=== PATIENT | male | born 1990 | race Two or more races ===

== ENCOUNTER 2024-04-18 14:33 | Emergency (ER) | payer MEDICAID, SELFPAY ==
[2024-04-18 15:03] VITALS: BP 131/79; BP 134/86; PULSE 106; PULSE 107; RESP 18; TEMP 37.2; O2SAT 96; O2SAT 97; BMI 21.4
[2024-04-18 15:11] VITALS: RESP 14
[2024-04-18 15:26] LABS: MANUAL DIFF FLAG NO
[2024-04-18 15:29] LABS: Basophils Percent Auto 0.2 % (0-2); Eosinophils Percent Auto 0.1 % (0-4); Hematocrit 40.2 % (42.0-52.0); Hemoglobin 13.6 g/dl (14.0-18.0); Imm Gran Abs Auto 0.07 X10*3/uL (0.00-0.03); Imm Gran Pct Auto 0.6 % (0.0-0.4); Lymphocytes Absolute Auto 1.3 X10*3/uL (1.2-4.9); Lymphocytes Percent Auto 11.5 % (20-40); Mean Corpuscular HGB Conc 33.8 g/dl (31.0-36.0); Mean Corpuscular Hemoglobin 30.6 pg (27.0-33.0); Mean Corpuscular Volume 90.5 fL (80.0-98.0); Mean Platelet Volume 9.8 fL (9.4-12.4); Monocytes Absolute Auto 0.6 X10*3/uL (0.1-1.2); Monocytes Percent Auto 5.3 % (2-11); Neutrophils Absolute Auto 8.9 x10*3/uL (2.0-8.3); Neutrophils Percent Auto 82.3 % (45-73); Platelet Count 269 X10*3/uL (160-400); Red Blood Count 4.44 X10*6/uL (4.60-5.80); Red Cell Distribution Width 12.8 % (11.0-16.0); White Blood Count 10.9 X10*3/uL (4.8-10.8)
--- NOTE | 2024-04-18 15:47 | ED_ITS ---
HPI - Psych General Chief Complaint: Psychiatric Symptoms Stated Complaint: COCAINE USE Time Seen by Provider: 04/18/24 15:42 Source: patient and EMS Mode of arrival: EMS Limitations: no limitations History of Present Illness ED Provider: Ludy Wilson NP HPI Narrative: Patient is a 33-year-old male presents emergency department via EMS for evaluation. He is requesting assistance with detox from cocaine he states he has been using for many years and feels it is impacting his life and feels that he just can not stop. Expresses grease but he would like to be able to see his son but can not if he is using cocaine. He endorses suicidal ideations but does not offer any specific plan or intent to act upon this. Denies additional recreational drug or alcohol usage. Denies homicidal ideations. Denies hallucinations. Related Data Home Medications ?Medication ?Instructions ?Recorded ?Confirmed No Known Home Meds 04/18/24 04/18/24 Allergies Allergy/AdvReac Type Severity Reaction Status Date / Time Penicillins [PENICILLINS] Allergy Unknown SWELLING Verified 04/18/24 15:09 Review of Systems 2 Review of Systems: Yes all other systems are reviewed and are negative [facility] Past Medical History Attestation statement: The following information was validated with the patient. Source: old records reviewed Social History Social History Alcohol intake: current Smoked in Last 30 Days: No Use of substances other than those prescribed or required for medical reasons: Yes Substance Use Type: Crack/Cocaine Substance Use Frequency: Chronic Longstanding Advance Directives: No Advance Directives Information Provided: No Do you have a plan to hurt others: No Plan Physical Exam 2 Vital Signs: Vital Signs: Last Vital Signs Temp 97.5 F 04/19/24 05:00 Pulse 82 04/19/24 05:00 Resp 16 04/19/24 05:00 BP 138/82 04/19/24 05:00 Pulse Ox 97 04/19/24 05:00 O2 Del Method Room Air 04/19/24 05:00 BMI result Body Mass Index 21.4 Appearance: Alert.?Oriented to person, place and time. No acute distress.?Normal affect. Eyes: Pupils equal, round and reactive to light.? ENT: Pharynx normal.?? Neck: Normal inspection.? Neck supple.?? CVS: Heart sounds normal. Normal heart rate and rhythm.? Pulses normal.?? Respiratory: No respiratory distress.? Lung sounds clear to auscultation bilaterally?? Abdomen: Soft and non-tender. Normoactive bowel sounds. Skin: Skin warm and dry.? Normal skin color.? Extremities: No lower extremity edema.? Neuro: Moves all extremities spontaneously. Sensation intact bilaterally. CN II- XII intact. No focal neuro deficits. Ambulates with normal steady gait. Course Reevaluation(s) Reevaluation #1: 11:28 on 04/19/2024. Patient remains in physician observation, he was cleared from the care team for requirement of inpatient level of care, denying suicidal ideations no plan or intent. This was reviewed with the attending physician yesterday evening he was referred to recovery team due to his request for detox from cocaine, endorsing that over the past 2 months he has been abstaining from meth usage but unable to stop using cocaine. Referrals were placed to local recovery facilities, awaiting disposition plan Reevaluation #2: observation care revealed that the patient does NOT meet psychiatric necessity for hospitalization. final disposition discussed with the patient. The patient completed observation care at 111pm. To go to [facility] AHUJA 111pm 04/19/24 Medical Decision Making Medical Decision Making [facility] Narrative: Patient is a 33-year-old male past medical history of substance use disorder with cocaine presenting for evaluation of vague suicidal ideations without a plan or direct intention requesting assistance with detox from. I did advise patient there was no direct detox from cocaine, but he is amenable to labs for medical clearance and referral to care team for safe disposition planning. He offers no physical complaints in his physical examination is benign. Differential Diagnosis Differential Diagnoses: The differential diagnosis associated with the presentation includes (See narrative above and below for further detail) Admission/Observation Consideration of admission/observation: Escalation of care including admission/observation considered Patient is being observed in the Emergency Department for vague suicidal ideations and substance use disorder. Observation time was started at 13:47 on 04/18/2024.?The patient is currently stable and non-toxic appearing. Observation is being initiated in the Emergency Department to allow time to help differentiate if the patient's depression vague suicidal ideation is due to Substance Induced Mood Disorder and Anxiety versus Major Depressive Disorder, Bipolar Le, Bipolar Depression, and Schizophrenia. The patient will receive frequent psychiatric assessments from the provider as well as from nursing staff. The patient will also be monitored for the need of PRN agitation medications such as Haldol, Ativan, and Benadryl. Consult Healthcare Provider Management of the patient was discussed with: Behavioral Health Provider (CARE team) Lab Data MDM Lab Attestation statement: I reviewed the patient's lab results. 04/18/24 15:19 04/18/24 15:19 Labs: Lab Results 04/18/24 04/18/24 Range/Units 15:19 23:12 WBC 10.9 H (4.8-10.8) X10*3/uL RBC 4.44 L (4.60-5.80) X10*6/uL Hgb 13.6 L (14.0-18.0) g/dl Hct 40.2 L (42.0-52.0) % MCV 90.5 (80.0-98.0) fL MCH 30.6 (27.0-33.0) pg MCHC 33.8 (31.0-36.0) g/dl RDW 12.8 (11.0-16.0) % Plt Count 269 (160-400) X10*3/uL MPV 9.8 (9.4-12.4) fL Immature Gran % (Auto) 0.6 H (0.0-0.4) % Neut % (Auto) 82.3 H (45-73) % Lymph % (Auto) 11.5 L (20-40) % [place] % (Auto) 5.3 (2-11) % Eos % (Auto) 0.1 (0-4) % Baso % (Auto) 0.2 (0-2) % Lymph # (Auto) 1.3 (1.2-4.9) X10*3/uL [place] # (Auto) 0.6 (0.1-1.2) X10*3/uL Eos # (Auto) 0.0 (0.0-0.4) X10*3/uL Baso # (Auto) 0.0 (0.0-0.2) X10*3/uL Abs Immat Gran (auto) 0.07 H (0.00-0.03) X10*3/uL Absolute Neuts (auto) 8.9 H (2.0-8.3) x10*3/uL Absolute Nucleated RBC 0.000 (0.0-0.012) X10*3/uL Nucleated RBC % (auto) 0.0 (0.0-0.2) /100WBC Sodium 135 (135-145) mmol/L Potassium 4.0 (3.3-5.1) mmol/L Chloride 102 (96-108) mmol/L Carbon Dioxide 23 (22-29) mmol/L Anion Gap 14 (12-20) BUN 13 (9-16) mg/dL Creatinine 0.66 (0.5-1.4) mg/dL Estim Creat Clear Calc 150.8 Estimated GFR > 60 Random Glucose 102 (60-115) mg/dL Calcium 10.4 H (8.4-10.2) mg/dL Total Bilirubin 0.4 (0.0-1.0) mg/dL AST 27 (5-37) U/L ALT 18 (0-40) U/L Alkaline Phosphatase 73 (39-117) U/L Total Protein 8.0 (6.5-8.0) g/dL Albumin 4.3 (3.5-5.0) g/dL Urine Color Yellow Urine Appearance Clear Urine pH 7.0 (5.0-9.0) Ur Specific Melvin 1.010 (1.005-1.025) Urine Protein Negative (Neg-Trace) mg/dL Urine Glucose (UA) Negative (Negative) mg/dL Urine Ketones Negative (Negative) mg/dL Urine Blood Negative (Negative) Urine Nitrite Negative (Negative) Ur Leukocyte Esterase Trace H (Negative) Urine RBC 0-2 (0-2) /HPF Urine WBC 0-5 (0-5) /HPF Ur Squamous Epith Cells 0-2 (0-2) /HPF Urine Bacteria None Seen (None Seen) Hyaline Casts 0-2 (0-2) /LPF Urine Opiates Screen Not Detected (Not Detect) Ur Buprenorphine Scrn Not Detected (Not Detect) ng/mL Ur Oxycodone Screen Not Detected (Not Detect) ng/mL Urine Methadone Screen Not Detected (Not Detect) ng/mL Urine Fentanyl Screen Not Detected (Not Detect) Ur Barbiturates Screen Not Detected (Not Detect) Ur Phencyclidine Scrn Not Detected (Not Detect) Ur Amphetamines Screen Not Detected (Not Detect) U Benzodiazepines Scrn Not Detected (Not Detect) Urine Cocaine Screen POSITIVE H (Not Detect) U Marijuana (THC) Screen POSITIVE H (Not Detect) Ethyl Alcohol < 10 mg/dL Independent Historian Clinical information obtained from an independent historian. History obtained from or confirmed by: EMS External Record Review External record reviewed: Outpatient record Discharge Plan Discharge Clinical Impression: Suicidal ideation, Cocaine use Patient Disposition: Xfer Other Transfer Details: Yoan Instructions: Cocaine Abuse (ED) Additional Instructions: return for any worsening symptoms or concerns You were seen in our Emergency Department today for treatment of a behavioral health issue. It is important after your visit that you follow up with either your behavioral health provider or a primary care doctor within 7 days.? If you have trouble finding a therapist you can reach out to [address] [phone] The National Suicide and Crisis Lifeline can be reached 7 days a week 24 hours a day.? Call 988 to speak with someone.? Return for any worsening symptoms or concerns such as thoughts of self harm or harm to others. Please call 911 if you feel your mental health is worsening.? Prescriptions: No Action No Known Home Meds Interventions: [place]-Suicide Risk Severity Scale Last Done: 04/18/24 15:11 Print Language: Lao
[2024-04-18 15:51] LABS: Alanine Aminotransferase 18 U/L (0-40); Albumin Level 4.3 g/dL (3.5-5.0); Anion Gap 14 (12-20); Aspartate Amino Transferase 27 U/L (5-37); Bilirubin Total 0.4 mg/dL (0.0-1.0); Blood Urea Nitrogen 13 mg/dL (9-16); Calcium 10.4 mg/dL (8.4-10.2); Carbon Dioxide 23 mmol/L (22-29); Chloride 102 mmol/L (96-108); Creatinine Clr Calc Pharmacy 150.8; Estimated Glomerular Filt Rate > 60; Ethanol < 10 mg/dL; Glucose Random 102 mg/dL (60-115); Sodium 135 mmol/L (135-145)
[2024-04-18 16:28] LABS: Alkaline Phosphatase 73 U/L (39-117)
--- OUTSIDE RECORDS SUMMARY | 2024-04-18 18:16 | XMS_ITS | Encounter Summary ---
Author Organization [facility] Address [address] [place] [address] Care Team Providers Care Corporate Director Name Role Phone Physician, No Pcp Primary Care Provider Unavaila ble Reason for Visit * Reason Comments Flank Pain Left flank pain star zakia yesterday Encounter Details Date Type Department Care Team (Late st Contact Info) Description 04/02/2024 6:02 PM EST - 04/03/2024 1:22 AM EST [facility] Emergency [address] [place] [address] Discharge Disposition: Left Against Medical Advice Social History Tobacco Use Types Packs/Day Years Used Date Smoking Tobacco: Every Day Cigarettes Smokeless Tobacco: Current Tobacco Cessation:Ready to Q uit: Not Asked; Counseling Given: Not Answered Sex and Gender Information Value Date Recorded Sex Assigned at Male 04/03/2024 9:06 PM EST Legal Sex Male 1:03 PM EST Gender Identity Male 04/03/2024 9:06 PM EST Sexual Orientation Not on file documented as of this encounter Last Filed Vital Signs Vital Sign Reading Time Taken Comments Blood Pressure 111/66 04/02/2024 8:47 PM EST Pulse 88 04/02/2024 8:47 PM EST Temperature 37.1 ??C (98.8 ??F) 04/02/2024 8:47 PM ES T Respiratory Rate 18 04/02/2024 8:47 PM EST Oxygen Saturation 97% 04/02/2024 8:47 PM EST Inhaled Oxygen Concentration - - Weight 59 kg (130 lb) 04/02/2024 6:14 PM EST Height 167.6 cm (5' 6 ) 04/02/2024 6:14 PM EST Body Mass Index 20.98 04/02/2024 6:14 PM EST documented in this encounter Discharge Disposition Disposition Code Departure Means Destination Left Against Medical Advice documented in this encounter Progress Notes * Penelope Hernandez RN - 04/02/2024 6:10 PM EST Patient arrives with c/o fever and left lower sided abdominal pain that radiates to his groin, painwith urination, and urgency noted, states cannot hold food or fluids down, body aches, feels SOB when taking deep breath, headache, vomiting intermittently. documented in this encounter Plan of Treatment Not on file documented as of this encounter Procedures Procedure Name Priority Date/Time Associated Diagnosis Comments [id number], RSV, FLU A AND B QUALITATIVE RT-PCR, INTERNAL LAB STAT 04/02/2024 8:47 PM EST URINALYSIS WITH REFLEX MICROSCOPIC AND CULTURE STAT 04/02/2024 6:46 PM EST BUITRAGO URINE CULTURE TUBE STAT 04/02/2024 6:46 PM EST URINALYSIS WITH REFLEX MICROSCOPIC AND CULTURE STAT 04/02/2024 6:46 PM EST CULTURE URINE STAT 04/02/2024 6:46 PM EST CBC WITH AUTO DIFFERENTIAL STAT 04/02/2024 6:43 PM EST CBC AND DIFFERENTIAL STAT 04/02/2024 6:43 PM EST COMPREHENSIVE METABOLIC PANEL STAT 04/02/2024 6:43 PM EST documented in this encounter Results * [id number], RSV, Influenza A and B qualitative RT-PCR (04/02/2024 8:47 PM EST) Influenza A PCR Not Detected Not Detected LAB MICROBIOLOGY METHOD 04/02/2024 10:14 PM EST [facility] Influenza B PCR Not Detected Not Detected LAB MICROBIOLOGY METHOD 04/02/2024 10:14 PM EST [facility] RSV PCR Not Detected Not Detected LAB MICROBIOLOGY METHOD 04/02/2024 10:14 PM EST [facility] SARS COV-2 Not Detected Not Detected LAB MICROBIOLOGY METHOD 04/02/2024 10:14 PM EST [facility] Swab Both anterior nares / Unknown Non-blood Collection / Unknown 04/02/2024 8:47 PM EST 04/02/2024 9:32 PM EST Narrative [facility] - 04/02/2024 10:14 PM EST Disclaimer: ??Testing was performed using the [employer] Gene[employer] Lotus[employer] Xpress SARS-CoV-2 _Flu_RSV PLUS PCR assay. ??The manner in which this information is used to guide patient care is the responsibility of the healthcare provider. ??Results should be correlated with the clinical history, epidemiological data, and other data available to the clinician evaluating the patient. ??Negative results do not preclude infection. ??This test has been authorized by the FDA under an Emergency Use Authorization (EUA). ??This test is only authorized for the duration of time the declaration that circumstances exist justifying the authorization of the emergency use of in vitro diagnostic tests for detection of SARS-CoV-2 virus and/or diagnosis of COVID-19 infection under section 564 (b) (1) of the Act, 21 U.S.C 360bbb-3 (b) (1), unless the authorization is terminated or revoked sooner. ?? Reference Range: Not Detected Fact sheet for Healthcare providers can be found at https://www.fda.gov/media/620881/download. ?? Fact sheet for Healthcare patients can be found at https://www.fda.gov/media/264191/download. Joni Vasquez MD LAB MICROBIOLOGY - GENERAL FABIOLA JONES Final Result [facility] [address] [place] [address], * Culture urine (04/02/2024 6:46 PM EST) [facility] Culture, Urine No growth 04/03/2024 2:08 PM EST [facility] Urine Urine specimen obtained by clean catch procedure / Unknown Non-blood Collection / Unknown 04/02/2024 6:46 PM EST 04/02/2024 7:50 PM EST Danny Arvizu MD LAB MICROBIOLOGY - GENERAL ORDE RABLES Final Result [facility] [address] [place] [address], [place] [phone] * Buitrago urine culture tube (04/02/2024 6:46 PM EST) [facility] Extra Tube Hold for add-ons. 04/02/2024 9:01 PM EST [facility] Comment:Auto resulted. Urine Urine specimen obtained by clean catch procedure / Unknown Non-blood Collection / Unknown 04/02/2024 6:46 PM EST 04/02/2024 7:14 PM EST Danny Arvizu MD LAB URINE ORDERABLES Final Resu lt Performing Organization Address [facility]/ZIP Co de Phone Number [facility] [address] [place] [address], [place] [phone] * (ABNORMAL) Urinalysis with reflex microscopic and culture (04/02/2024 6:46 PM EST) [facility] Specific [place] Urine 1.027 1.003 - 1.030 LAB URINALYSIS - AUTOMATED METHOD 04/02/2024 7:50 PM [facility] pH, Urine 8.0 5.0 - 8.0 pH LAB URINALYSIS - AUTOMATED METHOD 04/02/2024 7:50 PM [facility] Leukocytes, Urine Small(A) Negative LAB URINALYSIS - AUTOMATED METHOD 04/02/2024 7:50 PM [facility] Nitrite, Urine Negative Negative LAB URINALYSIS - AUTOMATED METHOD 04/02/2024 7:50 PM [facility] Protein, Urine 30(A) <=Trace mg/dL LAB URINALYSIS - AUTOMATED METHOD 04/02/2024 7:50 PM [facility] Glucose, Urine Negative Negative mg/dL LAB URINALYSIS - AUTOMATED METHOD 04/02/2024 7:50 PM [facility] Ketones, Urine Trace(A) Negative mg/dL LAB URINALYSIS - AUTOMATED METHOD 04/02/2024 7:50 PM [facility] Urobilinogen , Urine 1.0 0.2 - 1.0 mg/dL LAB URINALYSIS - AUTOMATED METHOD 04/02/2024 7:50 PM [facility] Bilirubin, Urine Negative Negative LAB URINALYSIS - AUTOMATED METHOD 04/02/2024 7:50 PM [facility] Blood, Urine Negative Negative LAB URINALYSIS - AUTOMATED METHOD 04/02/2024 7:50 PM [facility] RBC, Urine 3.3 0 - 4 /HPF LAB URINALYSIS - AUTOMATED METHOD 04/02/2024 7:50 PM [facility] WBC, Urine 13.3(H) 0 - 4 /HPF LAB URINALYSIS - AUTOMATED METHOD 04/02/2024 7:50 PM [facility] Squamous Epithelial, Urine 40 0 - 60 /LPF LAB URINALYSIS - AUTOMATED METHOD 04/02/2024 7:50 PM [facility] Crystals, Urine Light Amorphous Phosphate crystals. /LPF 04/02/2024 7:50 PM [facility] Bacteria, Urine Few(A) Negative /HPF LAB URINALYSIS - AUTOMATED METHOD 04/02/2024 7:50 PM [facility] Hyaline Casts, Urine 0 0 - 3 /LPF LAB URINALYSIS - AUTOMATED METHOD 04/02/2024 7:50 PM EST [facility] Mucus, Urine Moderate None /HPF 04/02/2024 7:50 PM EST [facility] Urine Urine specimen obtained by clean catch procedure / Unknown Non-blood Collection / Unknown 04/02/2024 6:46 PM EST 04/02/2024 7:14 PM EST us Danny Arvizu MD LAB URINE ORDERABLES Final Resu lt [facility] [address] [place] [address], [place] [phone] * (ABNORMAL) CBC auto differential (04/02/2024 6:43 PM EST) WBC 10.3 4.8 - 10.8 K/mcL LAB HEMETOLOGY METHOD 04/02/2024 7:26 PM [facility] RBC 4.50 4.50 - 5.50 M/mcL LAB HEMETOLOGY METHOD 04/02/2024 7:26 PM [facility] Hemoglobin 14.0 13.5 - 17.5 g/dL LAB HEMETOLOGY METHOD 04/02/2024 7:26 PM [facility] Hematocrit 41.7(L) 42.0 - 54.0 % LAB HEMETOLOGY METHOD 04/02/2024 7:26 PM [facility] MCV 92.3 79.0 - 98.0 FL LAB HEMETOLOGY METHOD 04/02/2024 7:26 PM [facility] MCH 31.0 27.0 - 32.0 pcg LAB HEMETOLOGY METHOD 04/02/2024 7:26 PM [facility] MCHC 33.6 32.0 - 37.0 g/dL LAB HEMETOLOGY METHOD 04/02/2024 7:26 PM [facility] RDW 12.2 11.0 - 15.0 % LAB HEMETOLOGY METHOD 04/02/2024 7:26 PM [facility] Platelets 301 130 - 400 K/mcL LAB HEMETOLOGY METHOD 04/02/2024 7:26 PM [facility] MPV 10.7 7.0 - 11.0 FL LAB HEMETOLOGY METHOD 04/02/2024 7:26 PM [facility] NRBC 0.0 <1.0 % LAB HEMETOLOGY METHOD 04/02/2024 7:26 PM [facility] NRBC Absolute 0.00 <0.10 K/mcL LAB HEMETOLOGY METHOD 04/02/2024 7:26 PM [facility] Neutrophils Relative 81.2 % LAB HEMETOLOGY METHOD 04/02/2024 7:26 PM [facility] Lymphocytes Relative 10.5 % LAB HEMETOLOGY METHOD 04/02/2024 7:26 PM [facility] Monocytes Relative 7.7 % LAB HEMETOLOGY METHOD 04/02/2024 7:26 PM [facility] Eosinophils Relative 0.0 % LAB HEMETOLOGY METHOD 04/02/2024 7:26 PM [facility] Basophils Relative 0.2 % LAB HEMETOLOGY METHOD 04/02/2024 7:26 PM [facility] Immature Granulocytes Relative 0.4 % LAB HEMETOLOGY METHOD 04/02/2024 7:26 PM [facility] Neutrophils Absolute 8.39(H) 1.50 - 7.00 K/mcL LAB HEMETOLOGY METHOD 04/02/2024 7:26 PM [facility] Lymphocytes Absolute 1.09 1.00 - 5.00 K/mcL LAB HEMETOLOGY METHOD 04/02/2024 7:26 PM [facility] Monocytes Absolute 0.80 0.20 - 1.00 K/mcL LAB HEMETOLOGY METHOD 04/02/2024 7:26 PM EST [facility] Eosinophils Absolute 0.00 0.00 - 0.50 K/mcL LAB HEMETOLOGY METHOD 04/02/2024 7:26 PM EST [facility] Basophils Absolute 0.02 0.00 - 0.20 K/mcL LAB HEMETOLOGY METHOD 04/02/2024 7:26 PM EST [facility] Immature Granulocytes Absolute 0.04(H) 0.00 - 0.03 K/[facility] LAB HEMETOLOGY METHOD 04/02/2024 7:26 PM EST [facility] Blood Venous blood specimen / Unknown Venipuncture / Unknown 04/02/2024 6:43 PM EST 04/02/2024 7:12 PM EST us Danny Arvizu MD LAB BLOOD ORDERABLES Final Resu lt [facility] [address] [place] [address], [place] [phone] * (ABNORMAL) Comprehensive metabolic panel (04/02/2024 6:43 PM EST) Sodium 129(L) 133 - 145 mmol/L LAB CHEMISTRY METHOD 04/02/2024 8:00 PM [facility] Potassium 4.3 3.5 - 5.5 mmol/L LAB CHEMISTRY METHOD 04/02/2024 8:00 PM [facility] Chloride 98 96 - 110 mmol/L LAB CHEMISTRY METHOD 04/02/2024 8:00 PM [facility] CO2 29 21 - 32 mmol/L LAB CHEMISTRY METHOD 04/02/2024 8:00 PM [facility] Anion Gap 2(L) 3 - 11 LAB CHEMISTRY METHOD 04/02/2024 8:00 PM [facility] Glucose 84 70 - 100 mg/dL LAB CHEMISTRY METHOD 04/02/2024 8:00 PM [facility] BUN 12 5 - 25 mg/dL LAB CHEMISTRY METHOD 04/02/2024 8:00 PM [facility] Creatinine 1.07 0.70 - 1.30 mg/dL LAB CHEMISTRY METHOD 04/02/2024 8:00 PM [facility] eGFR 95 >=60 mL/min/1. 73m2 LAB CHEMISTRY METHOD 04/02/2024 8:00 PM [facility] Comment:Calculation based on the??Chronic Kidney Disease Epidemiology Collaboration (CKD-EPI) equation refit??without adjustment for race. BUN/Creatinine Ratio 11.2 LAB CHEMISTRY METHOD 04/02/2024 8:00 PM [facility] Calcium 9.5 8.5 - 10.5 mg/dL LAB CHEMISTRY METHOD 04/02/2024 8:00 PM [facility] AST (SGOT) 21 10 - 42 unit/L LAB CHEMISTRY METHOD 04/02/2024 8:00 PM [facility] ALT (SGPT) 17 10 - 60 unit/L LAB CHEMISTRY METHOD 04/02/2024 8:00 PM [facility] Alkaline Phosphatase 80 42 - 121 unit/L LAB CHEMISTRY METHOD 04/02/2024 8:00 PM [facility] Total Protein 7.3 6.0 - 8.0 g/dL LAB CHEMISTRY METHOD 04/02/2024 8:00 PM [facility] Albumin 3.8 3.2 - 5.0 g/dL LAB CHEMISTRY METHOD 04/02/2024 8:00 PM [facility] Total Bilirubin 0.4 0.0 - 1.4 mg/dL LAB CHEMISTRY METHOD 04/02/2024 8:00 PM [facility] Blood Venous blood specimen / Unknown Venipuncture / Unknown 04/02/2024 6:43 PM EST 04/02/2024 7:12 PM EST us Danny Arvizu MD LAB BLOOD ORDERABLES Final Resu lt [facility] [address] [place] [address], documented in this encounter Visit Diagnoses Not on filedocumented in this encounter Administered Medications Inactive Administered Medications - up to 3 most recent administrations Medication Order MAR Action Action Date Dose Rate Site acetaminophen (TYLENOL) tablet 1,000 mg 1,000 mg, oral, Once, On Sun04/02/24 at 1820, For 1 dose Given 04/02/2024 6:25 PM EST 1,000 mg documented in this encounter Active and Recently Administered Medications Times are shown in EST. Scheduled Medication Order 04/01/2024 04/02/2024 04/03/2024 acetaminophen (TYLENOL) tablet 1,000 mg (COMPLETED) 1,000 mg, oral, Once, On Sun04/02/24 at 1820, For 1 dose 1825 (Given - Provider: Aury Hernandez RN) documented in this encounter Orders Medications Ordered That Felipe ht Not Have Been Administered Count Last Ordered Date First Ordered Date acetaminophen (TYLENOL) tablet 1,000 mg 1 0 04/02/2024 documented in this encounter Additional Health Concerns Infection Onset Date Last Indicated Resolved Time Respiratory Rule-Out 04/02/2024 04/02/2024 025 10:14 PM EST COVID-19 Rule-Out 04/02/2024 04/02/2024 04/02/2024 10:14 PM EST documented as of this encounter Care Teams Corporate Director Relationship Specialty Start Date End Date Physician, No Pcp PCP - General 04/03/24 documented as of this encounter
--- OUTSIDE RECORDS SUMMARY | 2024-04-18 18:16 | XMS_ITS | Encounter Summary ---
Author Organization [facility] Address [address] [place] [address] Care Team Providers Care Air Conditioning Installer Name Role Phone Physician, No Pcp Primary Care Provider Unavaila ble Reason for Visit * Reason Comments Abdominal Pain SEEN YESTERDAY FOR T HE SAME Encounter Details Date Type Department Care Team (Late st Contact Info) Description 04/03/2024 6:49 PM EST - 04/04/2024 12:05 AM EST Emergency [facility] Emergency [address] [place] [id number] Discharge Disposition: ED Dismiss - Never Arrived Social History Tobacco Use Types Packs/Day Years Used Date Smoking Tobacco: Every Day Cigarettes Smokeless Tobacco: Current Sex and Gender Information Value Date Recorded Sex Assigned at Male 04/03/2024 9:06 PM EST Legal Sex Male 1:03 PM EST Gender Identity Male 04/03/2024 9:06 PM EST Sexual Orientation Not on file documented as of this encounter Last Filed Vital Signs Vital Sign Reading Time Taken Comments Blood Pressure 102/59 04/03/2024 6:56 PM EST Pulse 96 04/03/2024 6:56 PM EST Temperature 36.7 ??C (98.1 ??F) 04/03/2024 6:56 PM ES T Respiratory Rate 16 04/03/2024 6:56 PM EST Oxygen Saturation 96% 04/03/2024 6:56 PM EST Inhaled Oxygen Concentration - - Weight 59 kg (130 lb) 04/03/2024 6:56 PM EST Height 167.6 cm (5' 5.98 ) 04/03/2024 6:56 PM ES T Body Mass Index 20.99 04/03/2024 6:56 PM EST documented in this encounter Discharge Disposition Disposition Code Departure Means Destination Comment s ED Dismiss - Never Arrived Pt called 3x for vital recheck, no response. Waiting room and bathrooms checked. Pt left without being seen. documented in this encounter Progress Notes * Juancarlos Miller DO - 04/03/2024 8:02 PM EST 33-year-old male presents emergency department with lower abdominal pain. The patient's workup willbe started in triage, and the patient will be brought back to see an ED provider soon as possible. I have spoken with the patient and explained that we strive to provide safe and effective care in the emergency department. During their visit they may experience extended wait times. I have discussed that out of concern for their safety, if the patient needs to leave for any reason to please let staff know immediately. * Gardenia Russell RN - 04/03/2024 6:54 PM EST PT continues to have lower quad abd pain, pain with urination and weakness. PT states had labs drawn yesterday but left before being seen. documented in this encounter Plan of Treatment Not on file documented as of this encounter Procedures Procedure Name Priority Date/Time Associated Diagnosis Comments URINALYSIS WITH REFLEX MICROSCOPIC AND CULTURE STAT 04/03/2024 8:12 PM EST BUITRAGO URINE CULTURE TUBE STAT 04/03/2024 8:12 PM EST URINALYSIS WITH REFLEX MICROSCOPIC AND CULTURE STAT 04/03/2024 8:12 PM EST CBC WITH AUTO DIFFERENTIAL STAT 04/03/2024 7:53 PM EST CBC AND DIFFERENTIAL STAT 04/03/2024 7:53 PM EST LIPASE STAT 04/03/2024 7:53 PM EST COMPREHENSIVE METABOLIC PANEL STAT 04/03/2024 7:53 PM EST documented in this encounter Results * Buitrago urine culture tube (04/03/2024 8:12 PM EST) Pathologist [facility] Extra Tube Hold for add-ons. 04/03/2024 10:02 PM [facility] Comment:Auto resulted. Urine Urine specimen obtained by clean catch procedure / Unknown Non-blood Collection / Unknown 04/03/2024 8:12 PM EST 04/03/2024 8:24 PM EST us Juancarlos Miller DO LAB URINE ORDERABLES Final Res ult [facility] [address] [place] [address], [place] [phone] * (ABNORMAL) Urinalysis with reflex microscopic and culture (04/03/2024 8:12 PM EST) [facility] Specific [place] Urine 1.029 1.003 - 1.030 LAB URINALYSIS - AUTOMATED METHOD 04/03/2024 8:41 PM [facility] pH, Urine 6.0 5.0 - 8.0 pH LAB URINALYSIS - AUTOMATED METHOD 04/03/2024 8:41 PM [facility] Leukocytes, Urine Negative Negative LAB URINALYSIS - AUTOMATED METHOD 04/03/2024 8:41 PM [facility] Nitrite, Urine Negative Negative LAB URINALYSIS - AUTOMATED METHOD 04/03/2024 8:41 PM [facility] Protein, Urine 30(A) <=Trace mg/dL LAB URINALYSIS - AUTOMATED METHOD 04/03/2024 8:41 PM [facility] Glucose, Urine Negative Negative mg/dL LAB URINALYSIS - AUTOMATED METHOD 04/03/2024 8:41 PM [facility] Ketones, Urine Trace(A) Negative mg/dL LAB URINALYSIS - AUTOMATED METHOD 04/03/2024 8:41 PM [facility] Urobilinogen, Urine 1.0 0.2 - 1.0 mg/dL LAB URINALYSIS - AUTOMATED METHOD 04/03/2024 8:41 PM [facility] Bilirubin, Urine Negative Negative LAB URINALYSIS - AUTOMATED METHOD 04/03/2024 8:41 PM [facility] Blood, Urine Negative Negative LAB URINALYSIS - AUTOMATED METHOD 04/03/2024 8:41 PM [facility] RBC, Urine 2.4 0 - 4 /HPF LAB URINALYSIS - AUTOMATED METHOD 04/03/2024 8:41 PM [facility] WBC, Urine 1.8 0 - 4 /HPF LAB URINALYSIS - AUTOMATED METHOD 04/03/2024 8:41 PM [facility] Squamous Epithelial, Urine 10 0 - 60 /LPF LAB URINALYSIS - AUTOMATED METHOD 04/03/2024 8:41 PM [facility] Bacteria, Urine Negative Negative /HPF LAB URINALYSIS - AUTOMATED METHOD 04/03/2024 8:41 PM [facility] Hyaline Casts, Urine 0.0 0 - 3 /LPF LAB URINALYSIS - AUTOMATED METHOD 04/03/2024 8:41 PM [facility] Urine Urine specimen obtained by clean catch procedure / Unknown Non-blood Collection / Unknown 04/03/2024 8:12 PM EST 04/03/2024 8:24 PM EST us Juancarlos Miller DO LAB URINE ORDERABLES Final Res ult [facility] [address] [place] [address], [place] [phone] * (ABNORMAL) CBC auto differential (04/03/2024 7:53 PM EST) WBC 12.2(H) 4.8 - 10.8 K/mcL LAB HEMETOLOGY METHOD 04/03/2024 8:09 PM [facility] RBC 4.50 4.50 - 5.50 M/mcL LAB HEMETOLOGY METHOD 04/03/2024 8:09 PM [facility] Hemoglobin 14.1 13.5 - 17.5 g/dL LAB HEMETOLOGY METHOD 04/03/2024 8:09 PM [facility] Hematocrit 41.1(L) 42.0 - 54.0 % LAB HEMETOLOGY METHOD 04/03/2024 8:09 PM [facility] MCV 90.7 79.0 - 98.0 FL LAB HEMETOLOGY METHOD 04/03/2024 8:09 PM [facility] MCH 31.1 27.0 - 32.0 pcg LAB HEMETOLOGY METHOD 04/03/2024 8:09 PM [facility] MCHC 34.3 32.0 - 37.0 g/dL LAB HEMETOLOGY METHOD 04/03/2024 8:09 PM [facility] RDW 12.2 11.0 - 15.0 % LAB HEMETOLOGY METHOD 04/03/2024 8:09 PM [facility] Platelets 241 130 - 400 K/mcL LAB HEMETOLOGY METHOD 04/03/2024 8:09 PM [facility] MPV 9.9 7.0 - 11.0 FL LAB HEMETOLOGY METHOD 04/03/2024 8:09 PM [facility] NRBC 0.0 <1.0 % LAB HEMETOLOGY METHOD 04/03/2024 8:09 PM [facility] NRBC Absolute 0.00 <0.10 K/mcL LAB HEMETOLOGY METHOD 04/03/2024 8:09 PM [facility] Neutrophils Relative 68.2 % LAB HEMETOLOGY METHOD 04/03/2024 8:09 PM [facility] Lymphocytes Relative 18.7 % LAB HEMETOLOGY METHOD 04/03/2024 8:09 PM [facility] Monocytes Relative 12.5 % LAB HEMETOLOGY METHOD 04/03/2024 8:09 PM [facility] Eosinophils Relative 0.1 % LAB HEMETOLOGY METHOD 04/03/2024 8:09 PM [facility] Basophils Relative 0.2 % LAB HEMETOLOGY METHOD 04/03/2024 8:09 PM [facility] Immature Granulocytes Relative 0.3 % LAB HEMETOLOGY METHOD 04/03/2024 8:09 PM [facility] Neutrophils Absolute 8.32(H) 1.50 - 7.00 K/mcL LAB HEMETOLOGY METHOD 04/03/2024 8:09 PM [facility] Lymphocytes Absolute 2.29 1.00 - 5.00 K/mcL LAB HEMETOLOGY METHOD 04/03/2024 8:09 PM [facility] Monocytes Absolute 1.53(H) 0.20 - 1.00 K/mcL LAB HEMETOLOGY METHOD 04/03/2024 8:09 PM [facility] Eosinophils Absolute 0.01 0.00 - 0.50 K/mcL LAB HEMETOLOGY METHOD 04/03/2024 8:09 PM [facility] Basophils Absolute 0.03 0.00 - 0.20 K/mcL LAB HEMETOLOGY METHOD 04/03/2024 8:09 PM [facility] Immature Granulocytes Absolute 0.04(H) 0.00 - 0.03 K/mcL LAB HEMETOLOGY METHOD 04/03/2024 8:09 PM [facility] Blood Venous blood specimen / Unknown Venipuncture / Unknown 04/03/2024 7:53 PM EST 04/03/2024 8:02 PM EST us Juancarlos Miller DO LAB BLOOD ORDERABLES Final Res ult Performing Organization Address [facility]/ZIP Co de Phone Number [facility] [address] [place] [address], [place] [phone] * Lipase (04/03/2024 7:53 PM EST) Lipase 21 13 - 75 unit/L LAB CHEMISTRY METHOD 04/03/2024 8:35 PM EST [facility] Blood Venous blood specimen / Unknown Venipuncture / Unknown 04/03/2024 7:53 PM EST 04/03/2024 8:02 PM EST Juancarlos Miller DO LAB BLOOD ORDERABLES Final Res ult Performing Organization Address [facility]/ZIP Co de Phone Number [facility] [address] [place] [address], [place] [phone] * (ABNORMAL) Comprehensive metabolic panel (04/03/2024 7:53 PM EST) [facility] Sodium 132(L) 133 - 145 mmol/L LAB CHEMISTRY METHOD 04/03/2024 8:35 PM [facility] Potassium 4.1 3.5 - 5.5 mmol/L LAB CHEMISTRY METHOD 04/03/2024 8:35 PM [facility] Chloride 100 96 - 110 mmol/L LAB CHEMISTRY METHOD 04/03/2024 8:35 PM [facility] CO2 25 21 - 32 mmol/L LAB CHEMISTRY METHOD 04/03/2024 8:35 PM [facility] Anion Gap 7 3 - 11 LAB CHEMISTRY METHOD 04/03/2024 8:35 PM [facility] Glucose 123(H) 70 - 100 mg/dL LAB CHEMISTRY METHOD 04/03/2024 8:35 PM [facility] BUN 16 5 - 25 mg/dL LAB CHEMISTRY METHOD 04/03/2024 8:35 PM [facility] Creatinine 1.00 0.70 - 1.30 mg/dL LAB CHEMISTRY METHOD 04/03/2024 8:35 PM [facility] eGFR 103 >=60 mL/min/1. 73m2 LAB CHEMISTRY METHOD 04/03/2024 8:35 PM [facility] Comment:Calculation based on the??Chronic Kidney Disease Epidemiology Collaboration (CKD-EPI) equation refit??without adjustment for race. BUN/Creatinine Ratio 16.0 LAB CHEMISTRY METHOD 04/03/2024 8:35 PM [facility] Calcium 9.1 8.5 - 10.5 mg/dL LAB CHEMISTRY METHOD 04/03/2024 8:35 PM [facility] AST (SGOT) 15 10 - 42 unit/L LAB CHEMISTRY METHOD 04/03/2024 8:35 PM [facility] ALT (SGPT) 15 10 - 60 unit/L LAB CHEMISTRY METHOD 04/03/2024 8:35 PM [facility] Alkaline Phosphatase 74 42 - 121 unit/L LAB CHEMISTRY METHOD 04/03/2024 8:35 PM [facility] Total Protein 7.7 6.0 - 8.0 g/dL LAB CHEMISTRY METHOD 04/03/2024 8:35 PM [facility] Albumin 3.8 3.2 - 5.0 g/dL LAB CHEMISTRY METHOD 04/03/2024 8:35 PM [facility] Total Bilirubin 0.4 0.0 - 1.4 mg/dL LAB CHEMISTRY METHOD 04/03/2024 8:35 PM [facility] Blood Venous blood specimen / Unknown Venipuncture / Unknown 04/03/2024 7:53 PM EST 04/03/2024 8:02 PM EST us Juancarlos Miller DO LAB BLOOD ORDERABLES Final Res ult [facility] [address] [place] [address], documented in this encounter Visit Diagnoses Not on filedocumented in this encounter Care Teams Air Conditioning Installer Relationship Specialty Start Date End Date Physician, No Pcp PCP - General 04/03/24 documented as of this encounter
--- OUTSIDE RECORDS SUMMARY | 2024-04-18 18:17 | XMS_ITS | Clinical Summary ---
Author Organization [facility] Address [address] [place] [address] Care Team Providers Care Customer Security Clerk Name Role Phone Sondra Cleary NP Primary Care Provider [phone] Source Comments PLEASE NOTE, if this patient is a minor, it may be UNLAWFUL to discuss sensitive information that is contained in these records (such as FAMILY PLANNING, MENTAL HEALTH or SUBSTANCE ABUSE) with the minor patient's parent or other person without the patient's specific authorization.[facility] Allergies Active Allergy Reactions Criticality Noted Date Comments Penicillins 11/17/2021 Medications QUEtiapine (SEROQUEL) 50 mg tabletIndicatio ns:Anxiety and depression Take 1 Tablet by mouth nightly at bedtime for 90 days 30 Tablet 2 04/10/2023 Active sertraline (ZOLOFT) 50 mg tabletIndicatio ns:Anxiety and depression Take 1 Tablet by mouth once daily 90 Tablet 1 04/10/2023 Active fluticasone (FLONASE) 50 mcg/actuation nasal sprayIndication s:Nasal congestion Place 1 Finley in both nostrils once daily for 90 days 16 g 04/10/2023 Active Active Problems Problem Noted Date Diagnosed Date New onset seizure ([facility]) 11/17/2021 Overview (05/04/2022): 05/04/22: reports this may be related to side effect of drug use. 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 Pt never started meds. No response to follow-up attempts.Repeat PPD at [facility] 24 mm 12/22/2011PPD 17 mm on 03/12/20093 bottles dispensed. No response to F/U attempts. Case closed.Started INH therapy on 06/28/10. Anxiety and depression 11/17/2021 Overview (05/04/2022): 05/04/2022: reports he is not followed , on zoloft PPD positive 03/12/2009 Overview (08/26/2014): 17 mm. 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 S/P bilateral inguinal hernia repair 03/12/2009 Overview (08/26/2014): As baby. Immune to hepatitis B 03/12/2009 Resolved Problems Problem Noted Date Diagnosed Date Resolved Date History of UTI 09/17/2021 11/17/2021 Encounters Date Type Department Care Team Description 02/14/2024 Travel from Last 3 Months Immunizations Name Administration Dates Next Due Bacillus Calmette-liz (tb) 1992 DTAP 01/25/2009, 4,01/09/1993,10/29 DTAP (DAPTACEL),5 PERTUSSIS ANTIGENS 03/17/1993, 01/09/1993,1992 Flu, Preservative Free 02/08/2021 HEP B, PED/ADOL 03/17/1993, 3,1992,08/19 Hep A, Ped/adol, 2 Dose 08/24/2009,04/16/2009 Hib (HbOC) 1992 Hib (PRP-T) 03/17/1993,01/09/1993,1992 INFLUENZA, SEASONAL, INJECTABLE 01/27/2010,03/15 IPV 03/17/1993, 3,1992,08/19 MENINGOCOCCAL ACWY, UNSPECIFIED 08/24/2009 MENINGOCOCCAL VACCINE,CONJUG ATE (NON-INTERFACE) 04/16/2009 MMR (MMR II/Priorix) 09/27/2009,08/25/19 10,04/16/2009,03/11 Moderna COVID-19 (Spikevax), Mrna, Lnp-s, Pf, 50 Mcg/0.5 Ml, 12yr+ 04/10/2023 Mumps, Live 11/14/2004 PFIZER COVID VACCINE, PURPLE CAP, 12+ 08/19/2020 ,07/15/2020 PNEUMOCOCCAL POLYSACCHARIDE PPV23 01/31/2008 PPD 03/12/2009 TDAP 04/04/2021,01/25/2009 Varicella, Live Vaccine 08/24/2009,01/25/2009 Yellow Fever, Live Vaccine 03/17/1994 Social History Tobacco Use Types Packs/Day Years Used Date Smoking Tobacco: Never Passive Smoke Exposure: Never Smokeless Tobacco: Never Tobacco Cessation:Counseling Given: Yes Alcohol Use Standard Drinks/Week Comments Yes 0 (1 standard drink = 0.6 oz pur e alcohol) occ Social Connections Answer Date Recorded Connectedness 0 05/04/2022 Financial Resource Strain Answer Date R ecorded Financial Resource Strain 0 2022 Stress Answer Date Recorded Stress 0 05/04/2022 Physical Activity Answer Date Recorded Physical Activity 0 09/17/2021 Food Insecurity Answer Date Recorded Food 0 05/04/2022 Transportation Needs Answer Date Record ed Transportation 0 05/04/2022 Housing Stability Answer Date Recorded Housing 0 05/04/2022 Safety and Environment Answer Date Toro rded Safety 0 05/04/2022 Utilities Answer Date Recorded Utilities 0 05/04/2022 Employment Answer Date Recorded Stress 0 05/04/2022 Sex and Gender Information Value Date Recorded Sex Assigned at Male 09/17/2021 9:43 AM PDT Legal Sex Male 11:36 AM PDT Gender Identity Male 09/17/2021 9:43 AM PDT Sexual Orientation Straight 09/17/2021 9: 43 AM PDT Last Filed Vital Signs Vital Sign Reading Time Taken Comments Blood Pressure 102/66 04/10/2023 2:02 PM EST Pulse 86 04/10/2023 2:02 PM EST Temperature 36.6 ??C (97.8 ??F) 04/10/2023 2:02 PM ES T Respiratory Rate 16 04/10/2023 2:02 PM EST Oxygen Saturation 97% 04/10/2023 2:02 PM EST Inhaled Oxygen Concentration - - Weight 61.2 kg (135 lb) 04/10/2023 2:02 PM EST Height 167.6 cm (5' 6 ) 04/10/2023 2:02 PM EST Body Mass Index 21.79 04/10/2023 2:02 PM EST Plan of Treatment Health Maintenance Due Date Last Done Comments Tobacco Screening 1992 Depression Monitoring 07/09/2023 04/10/2023 , 05/04/2022, 11/17/2021 [id number] ( season) 2023 04/10/2023, 08/19/2020, 07/15/2020 Imm-Influenza (#1) 2023 02/08/2021, 1 03/30/2009, 03/15/2009 Alcohol and Drug Screen 02/20/2024 04/10/19 24, 05/04/2022, 11/17/2021 Annual Preventive Care Visit 04/10/2024 04/10/2023 Hypertension Screening (#1) 04/09/2026 Imm-DTaP/Tdap/Td (8 - Td or Tdap) 07/15/2032 07/15/2022, 04/04/2021, 01/25/2009, Additional history exists Imm-Hepatitis B Completed 03/17/1993, 12/21, 1992, Additional history exists HIV Screening Completed 04/10/2023, 03/23, 09/19/2021 Hepatitis C Screening Completed 04/10/2023, 023 Procedures Procedure Name Priority Date/Time Associated Diagnosis Comments HIV 1/2 AG & AB W/RFLX (4TH GEN) Routine 04/10/2023 2:41 PM EST Screening for STD (sexually transmitted disease) HEPATITIS C AB W/RFLX HCV RNA, QT, RT PCR Routine 04/10/2023 2:41 PM EST Screening for STD (sexually transmitted disease) from Last 3 Months or Most Recently Relevant to Health Maintenance Results * HEPATITIS C AB W/RFLX HCV RNA, QT, RT PCR (04/10/2023 2:41 PM EST) HEPATITIS C ANTIBODY NON-REACT ANIL NON-REACT ANIL [employer] Comment: HCV antibody was non-reactive. There is no laboratory evidence of HCV infection. In most cases, no further action is required. However, if recent HCV exposure is suspected, a test for HCV RNA (test code 25770) is suggested. For additional information please refer to http://[employer].SmartBIM/faq/ZLC18x3 (This link is being provided for informational/ educational purposes only.) Blood Blood / Unknown 04/10/2023 2 :41 PM EST 04/10/2023 2:42 PM EST [facility] - BLOOD DRAW Edited Result - Final [facility] [address] [place] [address], [facility] [address] [address] * HIV 1/2 AG & AB W/RFLX (4TH GEN) (04/10/2023 2:41 PM EST) Pathologist [facility] HIV AG/AB, 4TH GEN NON-REAC TIVE NON-REAC TIVE [facility] [employer] Comment: HIV-1 antigen and HIV-1/HIV-2 antibodies were not detected. There is no laboratory evidence of HIV infection. PLEASE NOTE: This information has been disclosed to you from records whose confidentiality may be protected by state law. ??If your state requires such protection, then the state law prohibits you from making any further disclosure of the information without the specific written consent of the person to whom it pertains, or as otherwise permitted by law. A general authorization for the release of medical or other information is NOT sufficient for this purpose. ?? For additional information please refer to http://CoreX[employer].SmartBIM/faq/FBG005 (This link is being provided for informational/ educational purposes only.) The performance of this assay has not been clinically validated in patients less than 2 years old. Blood Blood / Unknown 04/10/2023 2 :41 PM EST 04/10/2023 2:42 PM EST [facility] - BLOOD DRAW Final Result [employer] [facility] [address] [address], [facility] [address] [place] [address] from Last 3 Months or Most Recently Relevant to Health Maintenance Insurance [facility] Care Teams Customer Security Clerk Relationship Specialty Start Date End Date Sondra Cleary NP [address] [place] [address] PCP - General Internal Medicine 11/17/21
--- OUTSIDE RECORDS SUMMARY | 2024-04-18 18:17 | XMS_ITS | Clinical Summary ---
Author Organization [facility] Address [address] [place] [address] Phone Care Team Providers Care Teacher Education Director Name Role Phone Physician, No Pcp Primary Care Provider Unavaila ble Allergies Active Allergy Reactions Criticality Noted Date Comments Penicillins Anaphylaxis High 04/02/2024 Encounters Date Type Department Care Team Description 04/03/2024 6:49 PM EST - 04/04/2024 12:05 AM EST Emergency [facility] Emergency [address] [place] [phone] Discharge Disposition: ED Dismiss - Never Arrived 04/02/2024 6:02 PM EST - 04/03/2024 1:22 AM EST [facility] Emergency [address] [place] [id number] Discharge Disposition: Left Against Medical Advice from Last 3 Months Social History Tobacco Use Types Packs/Day Years Used Date Smoking Tobacco: Every Day Cigarettes Smokeless Tobacco: Current Tobacco Cessation:Ready to Q uit: Not Asked; Counseling Given: Not Answered Sex and Gender Information Value Date Recorded Sex Assigned at Male 04/03/2024 9:06 PM EST Legal Sex Male 1:03 PM EST Gender Identity Male 04/03/2024 9:06 PM EST Sexual Orientation Not on file Obstetrics History Last Filed Vital Signs Vital Sign Reading [...] Mass Index 20.99 04/03/2024 6:56 PM EST Plan of Treatment Health Maintenance Due Date Last Done Comments IPV Vaccines (4 of 4 - 4-dose series) 1996 03/17/1993, 01/09/1993, 1992, Additional history exists Pneumococcal Vaccine: Pediatrics (0 to 5 Years) and At-Risk Patients (6 to 64 Years) (2 of 2 - PCV) 01/30/2009 01/31/2008 Hepatitis A Vaccines (2 of 2 - 2-dose series) 02/24/2010 08/24/2009, 04/16/2009 Cholesterol Screening (Lipid Panel) 01/17/2022 HIV Screening 01/17/2022 Social Influencers of Health Screening 01/17/2022 COVID-19 Vaccine ( season) 2023 04/10/2023, 08/19/2020, 07/15/2020 Influenza Vaccine (#1) 2023 , 01/27/2010, 03/15/2009 Depression Screening 04/10/2024 04/10/2023 DTaP,Tdap,and Td Vaccines (8 - Td or Tdap) 07/15/2032 07/15/2022, 04/04/2021, 01/25/2009, Additional history exists HIB Vaccines Aged Out 03/17/1993, 12/21, 1992 No longer eligible based on patient's age to complete this topic Hepatitis B Vaccines Completed 03/17/1993, 01/09/1993, 1992, Additional history exists Meningococcal ACWY Vaccine Completed 08/24/2009 Varicella Vaccines Completed 08/24/2009, 01/25/2009 MMR Vaccines Completed 09/27/2009, 07/2009, 04/16/2009, Additional history exists Hepatitis C Screening Completed 04/10/2023 HPV Vaccines Aged Out No longer eligi ble based on patient's age to complete this topic Meningococcal B Vacine Aged Out No lo nger eligible based on patient's age to complete this topic RSV Immunization Patients Under 20 months Aged Out No longer eligible based on patient's age to complete this topic Procedures Procedure Name Priority Date/Time Associated Diagnosis Comments BUITRAGO URINE CULTURE TUBE STAT 04/03/2024 8:12 PM EST URINALYSIS WITH REFLEX MICROSCOPIC AND CULTURE STAT 04/03/2024 8:12 PM EST URINALYSIS WITH REFLEX MICROSCOPIC AND CULTURE STAT 04/03/2024 8:12 PM EST CBC WITH AUTO DIFFERENTIAL STAT 04/03/2024 7:53 PM EST LIPASE STAT 04/03/2024 7:53 PM EST COMPREHENSIVE METABOLIC PANEL STAT 04/03/2024 7:53 PM EST CBC AND DIFFERENTIAL STAT 04/03/2024 7:53 PM EST [id number], RSV, FLU A AND B QUALITATIVE RT-PCR, INTERNAL LAB STAT 04/02/2024 8:47 PM EST BUITRAGO URINE CULTURE TUBE STAT 04/02/2024 6:46 PM EST URINALYSIS WITH REFLEX MICROSCOPIC AND CULTURE STAT 04/02/2024 6:46 PM EST URINALYSIS WITH REFLEX MICROSCOPIC AND CULTURE STAT 04/02/2024 6:46 PM EST CULTURE URINE STAT 04/02/2024 6:46 PM EST CBC WITH AUTO DIFFERENTIAL STAT 04/02/2024 6:43 PM EST COMPREHENSIVE METABOLIC PANEL STAT 04/02/2024 6:43 PM EST CBC AND DIFFERENTIAL STAT 04/02/2024 6:43 PM EST from Last 3 Months Results * (ABNORMAL) Urinalysis with reflex microscopic and culture (04/03/2024 8:12 PM EST) Only the most recent of2 resultswithin the time period is included. Specific [place] Urine 1.029 1.003 - 1.030 LAB URINALYSIS - AUTOMATED METHOD 04/03/2024 8:41 PM [facility] pH, Urine 6.0 5.0 - 8.0 pH LAB URINALYSIS - AUTOMATED METHOD 04/03/2024 8:41 PM [facility] Leukocytes, Urine Negative Negative LAB URINALYSIS - AUTOMATED METHOD 04/03/2024 8:41 PM [facility] Nitrite, Urine Negative Negative LAB URINALYSIS - AUTOMATED METHOD 04/03/2024 8:41 PM [facility] Protein, Urine 30(A) <=Trace mg/dL LAB URINALYSIS - AUTOMATED METHOD 04/03/2024 8:41 PM [facility] Glucose, Urine Negative Negative mg/dL LAB URINALYSIS - AUTOMATED METHOD 04/03/2024 8:41 PM [facility] Ketones, Urine Trace(A) Negative mg/dL LAB URINALYSIS - AUTOMATED METHOD 04/03/2024 8:41 PM [facility] Urobilinogen, Urine 1.0 0.2 - 1.0 mg/dL LAB URINALYSIS - AUTOMATED METHOD 04/03/2024 8:41 PM [facility] Bilirubin, Urine Negative Negative LAB URINALYSIS - AUTOMATED METHOD 04/03/2024 8:41 PM [facility] Blood, Urine Negative Negative LAB URINALYSIS - AUTOMATED METHOD 04/03/2024 8:41 PM [facility] RBC, Urine 2.4 0 - 4 /HPF LAB URINALYSIS - AUTOMATED METHOD 04/03/2024 8:41 PM [facility] WBC, Urine 1.8 0 - 4 /HPF LAB URINALYSIS - AUTOMATED METHOD 04/03/2024 8:41 PM [facility] Squamous Epithelial, Urine 10 0 - 60 /LPF LAB URINALYSIS - AUTOMATED METHOD 04/03/2024 8:41 PM [facility] Bacteria, Urine Negative Negative /HPF LAB URINALYSIS - AUTOMATED METHOD 04/03/2024 8:41 PM [facility] Hyaline Casts, Urine 0.0 0 - 3 /LPF LAB URINALYSIS - AUTOMATED METHOD 04/03/2024 8:41 PM [facility] Urine Urine specimen obtained by clean catch procedure / Unknown Non-blood Collection / Unknown 04/03/2024 8:12 PM EST 04/03/2024 8:24 PM EST Juancarlos Miller LAB URINE ORDERABLES Final Res ult Performing Organization Address [facility] Co de Phone Number [facility] [address] [place] [address], [place] [phone] * Buitrago urine culture tube (04/03/2024 8:12 PM EST) Only the most recent of2 resultswithin the time period is included. Extra Tube Hold for add-ons. 04/03/2024 10:[address] [facility] Comment:Auto resulted. Urine Urine specimen obtained by clean catch procedure / Unknown Non-blood Collection / Unknown 04/03/2024 8:12 PM EST 04/03/2024 8:24 PM EST us Juancarlos Miller DO LAB URINE ORDERABLES Final Res ult Performing Organization Address [facility]/ZIP Co de Phone Number [facility] [address] [place] [address], [place] [phone] * (ABNORMAL) CBC auto differential (04/03/2024 7:53 PM EST) Only the most recent of2 resultswithin the time period is included. WBC 12.2(H) 4.8 - 10.8 K/mcL LAB HEMETOLOGY METHOD 04/03/2024 8:09 PM [facility] RBC 4.50 4.50 - 5.50 M/mcL LAB HEMETOLOGY METHOD 04/03/2024 8:09 PM [facility] Hemoglobin 14.1 13.5 - 17.5 g/dL LAB HEMETOLOGY METHOD 04/03/2024 8:09 PM [facility] Hematocrit 41.1(L) 42.0 - 54.0 % LAB HEMETOLOGY METHOD 04/03/2024 8:09 PM [facility] MCV 90.7 79.0 - 98.0 FL LAB HEMETOLOGY METHOD 04/03/2024 8:09 PM [facility] MCH 31.1 27.0 - 32.0 pcg LAB HEMETOLOGY METHOD 04/03/2024 8:09 PM [facility] MCHC 34.3 32.0 - 37.0 g/dL LAB HEMETOLOGY METHOD 04/03/2024 8:09 PM [facility] RDW 12.2 11.0 - 15.0 % LAB HEMETOLOGY METHOD 04/03/2024 8:09 PM [facility] Platelets 241 130 - 400 K/mcL LAB HEMETOLOGY METHOD 04/03/2024 8:09 PM [facility] MPV 9.9 7.0 - 11.0 FL LAB HEMETOLOGY METHOD 04/03/2024 8:09 PM [facility] NRBC 0.0 <1.0 % LAB HEMETOLOGY METHOD 04/03/2024 8:09 PM [facility] NRBC Absolute 0.00 <0.10 K/mcL LAB HEMETOLOGY METHOD 04/03/2024 8:09 PM [facility] Neutrophils Relative 68.2 % LAB HEMETOLOGY METHOD 04/03/2024 8:09 PM [facility] Lymphocytes Relative 18.7 % LAB HEMETOLOGY METHOD 04/03/2024 8:09 PM [facility] Monocytes Relative 12.5 % LAB HEMETOLOGY METHOD 04/03/2024 8:09 PM [facility] Eosinophils Relative 0.1 % LAB HEMETOLOGY METHOD 04/03/2024 8:09 PM [facility] Basophils Relative 0.2 % LAB HEMETOLOGY METHOD 04/03/2024 8:09 PM [facility] Immature Granulocytes Relative 0.3 % LAB HEMETOLOGY METHOD 04/03/2024 8:09 PM [facility] Neutrophils Absolute 8.32(H) 1.50 - 7.00 K/mcL LAB HEMETOLOGY METHOD 04/03/2024 8:09 PM [facility] Lymphocytes Absolute 2.29 1.00 - 5.00 K/mcL LAB HEMETOLOGY METHOD 04/03/2024 8:09 PM [facility] Monocytes Absolute 1.53(H) 0.20 - 1.00 K/mcL LAB HEMETOLOGY METHOD 04/03/2024 8:09 PM [facility] Eosinophils Absolute 0.01 0.00 - 0.50 K/mcL LAB HEMETOLOGY METHOD 04/03/2024 8:09 PM [facility] Basophils Absolute 0.03 0.00 - 0.20 K/mcL LAB HEMETOLOGY METHOD 04/03/2024 8:09 PM [facility] Immature Granulocytes Absolute 0.04(H) 0.00 - 0.03 K/mcL LAB HEMETOLOGY METHOD 04/03/2024 8:09 PM [facility] Blood Venous blood specimen / Unknown Venipuncture / Unknown 04/03/2024 7:53 PM EST 04/03/2024 8:02 PM EST Juancarlos Miller DO LAB BLOOD ORDERABLES Final Res ult [facility] [address] [place] [address], [place] [phone] * Lipase (04/03/2024 7:53 PM EST) Pathologist [facility] Lipase 21 13 - 75 unit/L LAB CHEMISTRY METHOD 04/03/2024 8:35 PM [facility] Blood Venous blood specimen / Unknown Venipuncture / Unknown 04/03/2024 7:53 PM EST 04/03/2024 8:02 PM EST Juancarlos Miller LAB BLOOD ORDERABLES Final Res ult Performing Organization Address [facility]/ZIP Co de Phone Number [facility] [address] [place] [address], [place] [phone] * (ABNORMAL) Comprehensive metabolic panel (04/03/2024 7:53 PM EST) Only the most recent of2 resultswithin the time period is included. [facility] Sodium 132(L) 133 - 145 mmol/L LAB CHEMISTRY METHOD 04/03/2024 8:35 PM [facility] Potassium 4.1 3.5 - 5.5 mmol/L LAB CHEMISTRY METHOD 04/03/2024 8:35 PM [facility] Chloride 100 96 - 110 mmol/L LAB CHEMISTRY METHOD 04/03/2024 8:35 PM [facility] CO2 25 21 - 32 mmol/L LAB CHEMISTRY METHOD 04/03/2024 8:35 PM [facility] Anion Gap 7 3 - 11 LAB CHEMISTRY METHOD 04/03/2024 8:35 PM [facility] Glucose 123(H) 70 - 100 mg/dL LAB CHEMISTRY METHOD 04/03/2024 8:35 PM [facility] BUN 16 5 - 25 mg/dL LAB CHEMISTRY METHOD 04/03/2024 8:35 PM [facility] Creatinine 1.00 0.70 - 1.30 mg/dL LAB CHEMISTRY METHOD 04/03/2024 8:35 PM [facility] eGFR 103 >=60 mL/min/1. 73m2 LAB CHEMISTRY METHOD 04/03/2024 8:35 PM [facility] Comment:Calculation based on the??Chronic Kidney Disease Epidemiology Collaboration (CKD-EPI) equation refit??without adjustment for race. BUN/Creatinine Ratio 16.0 LAB CHEMISTRY METHOD 04/03/2024 8:35 PM [facility] Calcium 9.1 8.5 - 10.5 mg/dL LAB CHEMISTRY METHOD 04/03/2024 8:35 PM [facility] AST (SGOT) 15 10 - 42 unit/L LAB CHEMISTRY METHOD 04/03/2024 8:35 PM [facility] ALT (SGPT) 15 10 - 60 unit/L LAB CHEMISTRY METHOD 04/03/2024 8:35 PM [facility] Alkaline Phosphatase 74 42 - 121 unit/L LAB CHEMISTRY METHOD 04/03/2024 8:35 PM [facility] Total Protein 7.7 6.0 - 8.0 g/dL LAB CHEMISTRY METHOD 04/03/2024 8:35 PM [facility] Albumin 3.8 3.2 - 5.0 g/dL LAB CHEMISTRY METHOD 04/03/2024 8:35 PM [facility] Total Bilirubin 0.4 0.0 - 1.4 mg/dL LAB CHEMISTRY METHOD 04/03/2024 8:35 PM [facility] Blood Venous blood specimen / Unknown Venipuncture / Unknown 04/03/2024 7:53 PM EST 04/03/2024 8:02 PM EST Juancarlos Miller DO LAB BLOOD ORDERABLES Final Res ult [facility] [address] [place] [address], * [id number], RSV, Influenza A and B qualitative RT-PCR (04/02/2024 8:47 PM EST) Influenza A PCR Not Detected Not Detected LAB MICROBIOLOGY METHOD 04/02/2024 10:[address] [facility] Influenza B PCR Not Detected Not Detected LAB MICROBIOLOGY METHOD 04/02/2024 10:[address] [facility] RSV PCR Not Detected Not Detected LAB MICROBIOLOGY METHOD 04/02/2024 10:[address] [facility] SARS COV-2 Not Detected Not Detected LAB MICROBIOLOGY METHOD 04/02/2024 10:[address] [facility] Swab Both anterior nares / Unknown Non-blood Collection / Unknown 04/02/2024 8:47 PM EST 04/02/2024 9:[address] [facility] - 04/02/2024 10:14 PM EST Disclaimer: ??Testing was performed using the fos4X GeneXpert Xpress SARS-CoV-2 _Flu_RSV PLUS PCR assay. ??The [...] for Healthcare providers can be found at https://www.fda.gov/media/693694/download. ?? Fact sheet for Healthcare patients can be found at https://www.fda.gov/media/068532/download. Joni Vasquez MD LAB MICROBIOLOGY - GENERAL ORDE RABLES Final Result [facility] [address] [place] [address], [place] [phone] * Culture urine (04/02/2024 6:46 PM EST) Culture, Urine No growth 04/03/2024 2:[address] [facility] Urine Urine specimen obtained by clean catch procedure / Unknown Non-blood Collection / Unknown 04/02/2024 6:46 PM EST 04/02/2024 7:50 PM EST Danny Arvizu MD LAB MICROBIOLOGY - GENERAL ORDE RABDON Final Result Performing Organization Address [facility]/ZIP Co de Phone Number [facility] [address] [place] [address], [place] [phone] from Last 3 Months Insurance MEDICAID - [place] Care Teams Teacher Education Director Relationship Specialty Start Date End Date Physician, No Pcp PCP - General 04/03/24
--- NOTE | 2024-04-18 19:53 | PC.NURSE ---
patient appears to remain asleep at present repirations are even and unlabored patient appears in no distress.
[2024-04-18 23:21] LABS: Appearance Urine Clear; Color Urine Yellow; Glucose Urine UA Negative (Negative); Leukocyte Esterase Urine Trace (Negative); Nitrite Urine Negative (Negative); UMIC TRIGGER UACC YES; Urine Blood Negative (Negative); Urine Ketones Negative (Negative); Urine Protein Negative (Neg-Trace)
[2024-04-18 23:26] LABS: Bacteria Urine None Seen (None Seen); Hyaline Casts Urine 0-2 /LPF (0-2); RBC Urine 0-2 /HPF (0-2); Squamous Epithelial Cell Urine 0-2 /HPF (0-2); WBC Urine 0-5 /HPF (0-5)
[2024-04-18 23:31] LABS: Amphetamine Screen Urine Not Detected (Not Detect); Barbiturates, Urine Not Detected (Not Detect); Benzodiazepines Screen Urine Not Detected (Not Detect); Buprenorphine Scr Not Detected (Not Detect); Cannabinoid Screen Urine POSITIVE (Not Detect); Cocaine Screen Urine POSITIVE (Not Detect); Fentanyl, urine Not Detected (Not Detect); Methadone Screen, Urine Not Detected (Not Detect); Opiate Screen Urine Not Detected (Not Detect); Oxycodone Screen Urine Not Detected (Not Detect); Phencyclidine Screen Urine Not Detected (Not Detect)
[2024-04-19 05:00] VITALS: BP 138/82; PULSE 82; RESP 16; TEMP 36.4; O2SAT 97
--- NOTE | 2024-04-19 09:51 | MHC.RECOVRN ---
Met with pt in [facility] to discuss ongoing substance use. Pt stated recently he has been using cocaine (via snorting) almost daily, using a little less than an eight ball at a time. He states he has been abstaining from meth use for the last 2 months but is unable to stop using cocaine. Recent stressors include not being able to see his son because his ex has a new boyfriend and calls him a drug addict . Pt is support seeking, requesting ATS or CSS. He denies SI/HI (no plan or intent). Pt did state he is starting to feel hopeless in regards to his substance use but is denying any suicidal ideation, plan, or intent. He also denies auditory and visual hallucinations. ATS/CSS referrals to be made as per patient's request. ATS and CSS referrals have been sent to the follow facilities for review: 1. [facility] in [place] 2. [facility] in [place] 3. [facility] (multiple locations) 4. [facility] in [place] 5. [facility] in [place] 6. [facility] in [place] Will follow up shortly via phone call to these facilities.
[2024-04-19 14:14] VITALS: BP 138/82; PULSE 82; RESP 16; TEMP 36.4; O2SAT 97
== END 2024-04-19 14:15 | disposition other institution (70) ==
PROVIDERS: Emergency Provider Emergency Medicine
DX: R45.851 Suicidal ideations (principal); F14.10 Cocaine abuse, uncomplicated; F12.90 Cannabis use, unspecified, uncomplicated; Z71.51 Drug abuse counseling and surveillance of drug abuser; Z79.899 Other long term (current) drug therapy; Z51.81 Encounter for therapeutic drug level monitoring
CPT/HCPCS: 36415; 80053; 80307; 81001; 85025; 99284; 99285; S9485